=== PATIENT | female | born 1935 | race Caucasian/White ===

== ENCOUNTER 2022-05-11 15:36 | Emergency (ER) | payer MEDICARE ==
[~2022-05-11] VITALS: Ht 170.2 cm; Wt 59.9 kg
--- NOTE | 2022-05-11 15:46 | NUR ---
Christi cam in [facility] - 05/11/22 at 1547 by KRIS Patient discharged to home in stable condition with mother. Written and verbal after care instructions given. mother verbalizes understanding of instruction.
--- NOTE | 2022-05-11 17:05 | NUR ---
BIBS C/O RIGHT FOOT INJURY THIS MORNING S/P CHAYO STAND FELL OFF HER POST
[2022-05-11] MEDS ORDERED: TDAP [DIPH/PERTUSSIS/TET] 0.5 ML VIAL IM ONE ×2 (17:30→17:40)
[2022-05-11 19:11] VITALS: BP 131/81
--- NOTE | 2022-05-11 19:11 | NUR ---
Patient discharged to home in stable condition. Written and verbal after care instructions given. Patient verbalizes understanding of instruction.
== END 2022-05-11 19:11 | disposition home or self-care (01) ==
LOC: ER 15:45
DX: S90.32XA Contusion of left foot, initial encounter (principal); W04.XXXA Fall while being carried or supported by other persons, initial encounter; Y93.89 Activity, other specified; Y92.89 Other specified places as the place of occurrence of the external cause; Y99.8 Other external cause status
CPT/HCPCS: 73620-TC; 90715